=== PATIENT | female | born 1970 | race Caucasian/White ===

== ENCOUNTER 2021-09-12 07:10 | Emergency (ER) | payer OTHER ==
[~2021-09-12] VITALS: Ht 167.6 cm; Wt 63.5 kg
[2021-09-12 08:28] VITALS: BP 134/80
== END 2021-09-12 08:35 | disposition home or self-care (01) ==
LOC: EDH 07:10
DX: S52.502A Unspecified fracture of the lower end of left radius, initial encounter for closed fracture (principal); X58.XXXA Exposure to other specified factors, initial encounter; Y93.89 Activity, other specified; Y92.89 Other specified places as the place of occurrence of the external cause; Y99.8 Other external cause status
CPT/HCPCS: 29260; 73130